=== PATIENT | male | born 1970 | race Caucasian/White ===

== ENCOUNTER → 2018-02-12 | Outpatient (REF) ==
[2017-04-18 08:55] VITALS: BMI 41.5
[~2018-02-12] MED LIST: AMOX-559 PO; ASPI-757 PO; CELE-1 PO; DIA5 PO; KET10 PO; LISI20TA29 PO; MULT1CAP59 PO; NAPR220C12 PO; OMEG500C7 PO; ONDA4TAB PO; OXYC-823 PO; OXYC-869 PO; TAMS0.4C25 PO
== END ==
LOC: AUD 09:40
PROVIDERS: ATTEND Family Medicine
DX: Z01.10 Encounter for examination of ears and hearing without abnormal findings (principal)
CPT/HCPCS: 92552

== ENCOUNTER → 2018-05-01 | Outpatient (CLI) | payer BC ==
[2017-04-18 08:55] VITALS: BMI 41.5
[2018-05-01 12:32] LABS: PLATELET COUNT, AUTOMATED 219 K/uL (150-450)
== END ==
LOC: LAB 12:15
PROVIDERS: ATTEND Orthopaedic Surgery Hand Surgery
DX: M25.572 Pain in left ankle and joints of left foot (principal); R60.0 Localized edema
CPT/HCPCS: 36415; 84550; 85025; 85651; 86038; 86140; 86430

== ENCOUNTER → 2019-01-22 | Outpatient (REF) | payer BC ==
[2017-04-18 08:55] VITALS: BMI 41.5
== END ==
LOC: ZZSENDIN 12:00
PROVIDERS: ATTEND Family Medicine
DX: L57.0 Actinic keratosis (principal)
CPT/HCPCS: 88305

== ENCOUNTER → 2019-02-11 | Outpatient (REF) ==
[2017-04-18 08:55] VITALS: BMI 41.5
== END ==
LOC: AUD 13:32
PROVIDERS: ATTEND Family Medicine
DX: Z01.12 Encounter for hearing conservation and treatment (principal)
CPT/HCPCS: 92552

== ENCOUNTER → 2019-06-05 | Outpatient (CLI) | payer BC ==
[2017-04-18 08:55] VITALS: BMI 41.5
--- NOTE | 2019-06-09 10:07 | RADIOLOGY IMAGING REPORT ---
FACILITY: [facility] PATIENT NAME: Rob Hope : 1970 MR: [id number] V: [id number] EXAM DATE: ORDERING PHYSICIAN: ANGELINE DUMAS TECHNOLOGIST: Location: [facility] Patient: Rob Hope : 1970 Visit/Account:[id number] Date of Sevice: 06/05/2019 CT ANKLE W/O LT COMPARISON: None. HISTORY: Left ankle pain. TECHNIQUE: Noncontrast axial CT of the top half of the left ankle and midfoot with coronal and sagit juanita reformats. One of the following dose optimization techniques was utilized in the performance of this exam: auto mated exposure control; adjustment of the mA and/or kV according to patient size; or use of iterative reconstruction technique. Specific details can be referenced in the facility's radiology CT exam op erational policy. CONTRAST: None. FINDINGS: Please note that due to a protocol error, the entire ankle and midfoot was not scanned at the time of this exam; only the top half to top two thirds of the left ankle and midfoot, including the subtalar joint were scanned. Patient was scanned on June 05, 2019 and I requested that he be recalled for a full scan of the left ankle however he is reportedly unable to return for repeat scan until next week . An addendum can be made to this report once the patient can return. BONES : No acute appearing fractures. No significant arthropathy or degenerative changes. Normal-a ppearing tibiotalar and subtalar joint. 0.8 x 1.9 x 1.4 cm os trigonum is noted posteriorly, without significant degenerative changes between it and the posterior talus. There is mild dorsal talonavic ular joint, navicular cuneiform and dorsal second TMT joint spurring. The TMT joints are incompletel y imaged. Prominent posterior calcaneal enthesophyte with thickening of the most distal Achilles ten don at the insertion, suggesting sequela of chronic Achilles tendinopathy although there is no edema in the pre-Achilles fat. FLUID: No appreciable effusion or drainable fluid collection. SOFT TISSUES: No muscle atrophy or definite muscle edema. Extensor tendons are unremarkable. Achil les tendon appears mildly thickened distally. Flexor and peroneal tendons and segments which are see n are unremarkable for CT technique but incompletely imaged. OTHER: Negative. IMPRESSION: 1. Incomplete scan of the left ankle/midfoot as above. The patient has been recalled for repeat sca n through the entire ankle and midfoot but cannot return for at least one week. An addendum can be m tomasa to this report when he returns. 2. Normal appearing tibiotalar and subtalar joints. Mild dorsal spurring throughout the visualized midfoot. 3. Probable chronic Achilles tendinopathy at the insertion. 4. 1.9 cm os trigonum. Report Dictated By: Miguel Woods at 06/09/2019 9:54 AM Report E-Signed By: Miguel Woods at 06/09/2019 10:00 AM WSN:[id number]
== END ==
LOC: CT 00:33
PROVIDERS: ATTEND Orthopaedic Surgery
DX: M19.072 Primary osteoarthritis, left ankle and foot (principal)